=== PATIENT | male | born 1945 | race Hispanic/Latino ===

== ENCOUNTER 2021-10-11 06:18 | Day surgery (SDC) | payer MEDICARE ==
[2021-10-11] MEDS ORDERED: ASPIRIN EC 325 MG TAB PO SCH (07:00)
[2021-10-11 07:20] LABS: Basophils # (Auto) 0.2 K/mm3 (0.0-0.1); Basophils % (Auto) 2.8 % (0.0-1.8); Eosinophils # (Auto) 0.2 K/mm3 (0.0-0.4); Eosinophils % (Auto) 3.6 % (0.0-4.3); Hematocrit 41.5 % (35.5-45.6); Hemoglobin 14.4 gm/dl (11.8-15.2); Lymphocytes % (Auto) 17.2 % (13.4-35.0); Mean Corpuscular HGB Conc 35 % (32-34); Mean Corpuscular Volume 98 fl (84-94); Monocytes # (Auto) 0.4 K/mm3 (0.0-0.8); Monocytes % (Auto) 6.4 % (0.0-7.3); Platelet Count 102 K/mm3 (140-440); Red Blood Count 4.23 M/mm3 (3.65-5.03)
[2021-10-11 07:28] LABS: INR 0.97 (0.87-1.13)
[2021-10-11 07:29] LABS: Partial Thromboplastin Time 28.8 Sec. (24.2-36.6)
[2021-10-11 07:31] LABS: Calcium 9.7 mg/dL (8.4-10.2)
[2021-10-11] MEDS: SODIUM CHLORIDE 0.9% 500 ML 500 ML IV SCH ×2 (07:45→08:45)
[2021-10-11] MEDS ORDERED: HEPARIN/NS 5000 UNIT/500ML 1,000 ML IR ONE (08:23)
[2021-10-11] MEDS ORDERED: VERAPAMIL 5 MG/2 ML INJ ONE (08:25)
[2021-10-11] MEDS ORDERED: NITROGLYCERIN SYRINGE 3 ML ONE (08:25)
[2021-10-11] MEDS: fentaNYL 100 MCG/2 ML INJ ONE ×2 (08:43→08:50)
[2021-10-11] MEDS: MIDAZOLAM 2 MG/2 ML INJ ONE ×2 (08:43→08:50)
[2021-10-11] MEDS: LIDOCAINE (1%) 10 MG/1 ML VIAL 20 ML MDV ONE ×2 (08:44→08:54)
[2021-10-11] MEDS: HEPARIN 10,000 UNITS/10 ML VIAL ONE ×3 (08:44→09:05)
[2021-10-11] MEDS ORDERED: SODIUM CHLORIDE 0.9% 500 ML 500 ML ONE ×2 (09:23→11:51)
[2021-10-11] MEDS ORDERED: ALUM-MAG HYDROXIDE-SIMETHICONE 200-200-20MG/5ML ORAL LIQD 30 ML PO SCH (09:41)
[2021-10-11] MEDS ORDERED: CLOPIDOGREL 300 MG TAB ONE (09:46)
[2021-10-11] MEDS ORDERED: ALUM-MAG HYDROXIDE-SIMETHICONE 200-200-20MG/5ML ORAL LIQD 30 ML ONE (09:48)
[2021-10-11] MEDS ORDERED: traMADol 50 MG TAB PO PRN (09:51)
[2021-10-11] MEDS ORDERED: HYDROcodone/ACETAMINOPHEN 5-325 MG TAB PO PRN (09:51)
[2021-10-11] MEDS ORDERED: CLOPIDOGREL 300 MG TAB PO SCH (10:00)
--- NOTE | 2021-10-11 10:09 | Electrocardiograph Report ---
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
[2021-10-11] MEDS ORDERED: ATROPINE 0.1% (1 MG/10 ML) CARDIAC SYRINGE ONE (10:51)
--- NOTE | 2021-10-11 10:54 | Cardiac Catherization Report ---
DATE OF PROCEDURE: 10/11/2021 REFERRING PHYSICIAN: Carson Mckeon MD INDICATIONS FOR PROCEDURE: The patient is a pleasant 76-year-old gentleman with strong family history of premature heart disease, multiple risk factors, having more shortness of breath, a nondiagnostic treadmill, questionable chronotropic competence and also having some bradycardia, referred for left heart catheterization. Risks, benefits, potential alternatives explained at length prior to obtaining informed consent. His creatinine is mildly elevated at 1.7. He was prehydrated appropriately. PROCEDURE IN DETAIL: The patient was brought to director of labor relations in postabsorptive state, prepped and draped in sterile fashion. Romeo's test in right hand is normal. A 2 mL of lidocaine used to anesthetize the right wrist. A standard 6-Slovenian hydrophilic sheath used to cannulate the right radial artery via modified Seldinger technique. All exchanges performed to exchange a J-tip guidewire. A JL3.5 catheter was used to engage the left main. No dampening or ventricularization. Cineangiography performed in multiple projections. JR4 catheter used to cross the aortic valve under fluoroscopic guidance. Left ventriculography performed in the 30-degree [place] and 30-degree FAROESE projections via hand injections, catheter flushed. Manual pullback performed with continuous pressure monitoring. Catheter used to engage the right coronary. No dampening or ventricularization. Cineangiography performed in multiple projections. I directly supervised moderate sedation form [id number]. DATA: Aortic pressure is 150/70, LV pressure is 150, LVEDP of 20 mmHg. Left ventriculography reveals normal systolic performance, estimated ejection fraction of 55%-60%. No evidence of aortic stenosis. CORONARY ANATOMY: This is a right dominant system. Left main without significant disease, bifurcates into left anterior descending, left circumflex. Left circumflex is moderate sized vessel, courses AV groove. No significant disease. LAD is a moderate sized vessel, courses anterior interventricular groove, wraps around the apex, no significant disease. Scattered luminal irregularities. Right coronary has moderate calcification in the mid segment, tortuous, 90% stenosis in the distal segment, SHAINA 3 flow. I believe this was the culprit. We turned our attention to PCI at this point. Abnormal ACT is confirmed, heparin given. A JR4 guide used to engage the right coronary without difficulty. We used a [place] wire to cross the lesion without difficulty. Unable to pass a balloon or stent due to significant tortuosity and calcium in the mid segment. Next, we conor wired with a BMW wire. Tried passing on a balloon or stent on both wires unsuccessfully. Given calcification, I believe patient would benefit from shockwave or rota. Final angiogram reveals no complications, SHAINA 3 flow. We stopped the procedure and transferred to a tertiary care center for aforementioned calcium debulking. The patient remained chest pain free and stable throughout, sinus rhythm throughout. It should be noted that I used Visipaque, only 40 mL of Isovue was used throughout the procedure. Continue IV fluids. CONCLUSIONS: 1. Severe single vessel disease with 56% mid right coronary, heavily calcified and 90% distal right coronary. Unsuccessful PCI due to tortuosity and calcification. No complications. SHAINA 3 flow. No significant disease in the left system, preserved normal left ventricular systolic performance, estimated ejection fraction 55%-60%. 2. No evidence of aortic stenosis. At this point, the patient will be transferred to [facility] for rotablation or shockwave followed by a PCI. The patient is clinically stable. Continue IV fluid. We will check creatinine in a.m. Standard radial care. We will load with Plavix. Results of procedure explained to the patient and family. All questions were addressed. TID: [id number] RECEIPT: [id number] PAULINE/WERNER/ANITA PHILLIP
[2021-10-11] MEDS ORDERED: HEPARIN/NS 5000 UNIT/500ML 500 ML IR ONE (11:20)
[2021-10-11] MEDS ORDERED: HEPARIN 10,000 UNITS/10 ML VIAL ONE (11:20)
[2021-10-11] MEDS ORDERED: LIDOCAINE (1%) 10 MG/1 ML VIAL 20 ML MDV ONE ×2 (11:20→11:36)
--- NOTE | 2021-10-11 12:05 | Short Stay Summary ---
Short Stay Documentation Date of service: 10/11/21 - History H&P: obtained from office - Allergies and Medications Current Medications: Allergies Sulfa (Sulfonamide Antibiotics) Allergy (Verified 10/11/21 06:52) Hives Home Medications Medication Instructions Recorded Confirmed Last Taken Type AtorvaSTATin [Lipitor] 20 mg PO QHS 10/11/21 10/11/21 10/10/21 History Glimepiride [Amaryl] 4 mg PO QAM 10/11/21 10/11/21 10/10/21 History NIFEdipine [Nifedipine ER] 90 mg PO DAILY 10/11/21 10/11/21 10/10/21 History Triamterene/Hydrochlorothiazid 1 each PO DAILY 10/11/21 10/11/21 10/10/21 History [Triamterene-Hctz 37.5-25 mg Cp] metFORMIN [Glucophage] 500 mg PO BID 10/11/21 10/11/21 10/10/21 History Active Medications Hydrocodone Bitart/Acetaminophen (Hydrocodone/Acetaminophen 5-325 Mg Tab) 1 each PO Q4H PRN PRN Reason: Pain, Moderate (4-6) Al Hydrox/Mg Hydrox/Simethicone (Alum-Mag Hydroxide-Simethicone 275-085-30xp/5ml Oral Liqd 30 Ml) 30 ml PO ONCE [facility] Stop: 10/11/21 23:00 Last Admin: 10/11/21 09:53 Dose: 30 ml Aspirin (Aspirin Ec 325 Mg Tab) 325 mg PO ONCE@0700 [facility] Stop: 10/11/21 17:00 Last Admin: 10/11/21 07:49 Dose: 325 mg Clopidogrel Bisulfate (Clopidogrel 300 Mg Tab) 300 mg PO ONCE [facility] Stop: 10/11/21 23:00 Last Admin: 10/11/21 09:53 Dose: 300 mg Tramadol HCl (Tramadol 50 Mg Tab) 50 mg PO Q4H PRN PRN Reason: Pain, Mild (1-3) - Physical exam Integumentary: other (Dressing clean dry and intact with no signs of bleeding or hematoma) - Brief post op/procedure progress note Date of procedure: 10/11/21 Pre-op diagnosis: Abnormal stress test Post-op diagnosis: other (Severe single-vessel coronary artery disease) Anesthesia: local Estimated blood loss: minimal - Hospital course Hospital course: Patient presents today for cardiac cath for an abnormal stress test and bradycardia. Patient found to have severe single-vessel disease and RCA. Unsuccessful PCI due to tortuosity and calcification. Patient to be transferred to [facility] for further intervention. Following cardiac cath patient was going between second-degree Mobitz and complete heart block complete heart block. Temporary pacemaker was implanted. Patient tolerated procedure well with no complications. Patient will continue to be transferred to [facility] for further. Plan of care discussed with both patient and patient's who verbalized understanding and acknowledgment 30 minutes of critical care time spent in care and coordination. - Disposition Condition at discharge: Good Disposition: 02 SHORT TERM [facility]OS[facility] - Discharge Diagnoses (1) CAD (coronary artery disease) Status: Acute (2) CHB (complete heart block) Status: Acute (3) Mobitz (type) II atrioventricular block Status: Acute (4) HTN (hypertension) Status: Acute Short Stay Discharge Plan Activity: advance as tolerated Diet: low fat, low cholesterol, low salt Wound: keep clean and dry, per your surgeon's advice Follow up with: JEFF STARR MD [Primary Care Provider] - 7 Days MANDA JAFFE MD [Staff Physician] - 7 Days
--- NOTE | 2021-10-11 13:30 | Cardiac Catherization Report ---
DATE OF PROCEDURE: 10/11/2021 PROCEDURE: Temporary pacemaker. INDICATIONS FOR PROCEDURE: The patient just underwent a diagnostic left heart catheterization earlier this morning. Please see full report in details. In the postoperative area, the patient developed complete heart block, which was prolonged in the 20-minute range. I do not believe this was a vagal episode. He was asymptomatic and did not become hypotensive, but this was certain ____ were performed. Decided to proceed with a temporary venous pacemaker prior to transfer for elective PCI. I did discuss with via telephone as well as the patient given the change in status. DESCRIPTION OF PROCEDURE: The patient was still n.p.o. and brought to the orthodontic laboratory technician in a ____ fashion. Prepped and draped in sterile fashion. An 8 mL of 2% lidocaine was used to anesthetize the right groin. A standard 7-Portuguese sheath placed in the right common femoral vein. A balloon tipped temporary venous pacemaker is advanced under fluoroscopic guidance into the apex of the right ventricle. Pacemaker was tested. Thresholds and outputs were tested. The pacemaker was functioning well, backup rate of 50 is set. The patient is clinically stable, back in normal rhythm at baseline, heart rate of 55-65, not requiring the pacemaker. He tolerated the procedure well. There were no immediate complications. I directly supervised moderate sedation from 1140- 1210. CONCLUSIONS: 1. Successful fluoroscopy-guided temporary venous pacemaker placement under fluoroscopic guidance through the right femoral vein. No complications. The patient tolerated the procedure well. The patient will be transferred to [facility] urgently for PCI of the right coronary. I do not believe his AV block was ischemic. He has SHAINA 3 flow in his right coronary. In that light, he will be hydrated. Rotablation and PCI of right coronary to be followed by consideration of permanent pacemaker discussed with Dr. Strickland, receiving physician at [facility]. Again, the patient is chest pain free, clinically stable at this point. Transfer is imminent. has been re-updated as well. TID: [id number] RECEIPT: [id number] PAULINE/EDWIN/MAIKOL/ROMA MTDD
[2021-10-11 15:05] VITALS: BP 157/73
--- NOTE | 2021-10-12 11:15 | Electrocardiograph Report ---
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
--- NOTE | 2021-10-12 11:16 | Electrocardiograph Report ---
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
--- NOTE | 2021-10-12 11:16 | Electrocardiograph Report ---
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
--- NOTE | 2021-10-12 11:16 | Electrocardiograph Report ---
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
--- NOTE | 2021-10-12 11:17 | Electrocardiograph Report ---
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
== END 2021-10-11 13:05 | disposition short-term general hospital (02) ==
LOC: CATHLABREC 06:18
PROVIDERS: ATTEND Internal Medicine
DX: R94.30 Abnormal result of cardiovascular function study, unspecified (principal); I25.10 Atherosclerotic heart disease of native coronary artery without angina pectoris; I44.2 Atrioventricular block, complete; I44.1 Atrioventricular block, second degree; I10 Essential (primary) hypertension; E78.2 Mixed hyperlipidemia; E11.9 Type 2 diabetes mellitus without complications; Z88.2 Allergy status to sulfonamides; Z87.891 Personal history of nicotine dependence; Z79.899 Other long term (current) drug therapy; Z79.84 Long term (current) use of oral hypoglycemic drugs; Z85.46 Personal history of malignant neoplasm of prostate; Z98.890 Other specified postprocedural states; Z85.51 Personal history of malignant neoplasm of bladder; Z82.49 Family history of ischemic heart disease and other diseases of the circulatory system
CPT/HCPCS: 33210; 36415; 80048; 85025; 85610; 85730; 92920; 93005; 93458; 99156; 99157; C1769; C1887; C1894; J1644; J1815; J2250; J3010; J7040; J0461; Q9967